=== PATIENT | male | born 1955 | race Caucasian/White ===

== ENCOUNTER 2018-05-23 14:25 | Inpatient (IN) | payer SELFPAY ==
[2018-05-23 15:11] LABS: Bilirubin Large (Negative); Blood, Urine Large (Negative); Clarity CLOUDY (Clear); Glucose, Urine (Dipstick) Negative (Negative); Leukocyte Moderate (Negative); Nitrite Positive (Negative); Protein, Urine (Dipstick) Trace mg/dL (Neg-Trace); Specific Gravity, Urine 1.018 (1.002-1.036)
[2018-05-23 15:18] LABS: Hemoglobin 11.1 g/dL (14.0-18.0); Mean Corpuscular HGB CONC 31.6 g/dL (32.0-36.0); Mean Corpuscular Hemoglobin 34.1 pg (27.0-31.0); Mean Platelet Volume 8.4 fL (7.4-10.4); Platelet Count 127 thou/uL (130-400); Red Blood Cell (RBC) Count 3.27 mill/uL (4.70-6.10)
[2018-05-23 15:18] LABS: Bacteria/HPF None Seen HPF (None Seen); Hyaline Casts/LPF 0-3 HYALINE CAST LPF (0-3 Hyaline); Pathc Cast-AUWi Flag 0.14 (0-2.49); Squamous Epithelial 0-3 HPF (0-3)
[2018-05-23 15:20] LABS: Yeast-AUWi Flag 109.7 (0-25.0)
[2018-05-23 15:22] LABS: Amphetamine Not Detected (NotDetected); Barbiturates Screen Not Detected (NotDetected); Benzodiazepine Screen Not Detected (NotDetected); Cocaine Metabolite Screen Not Detected (NotDetected); Medtox Control Line Valid? VALID (VALID); Medtox Reader # READER 1; Methadone Not Detected (NotDetected); Methamphetamine Not Detected (NotDetected); Opiate Screen Not Detected (NotDetected); Oxycodone Screen Not Detected (NotDetected); Phencyclidine (PCP) Not Detected (NotDetected); THC/Cannabinoid Screen Not Detected (NotDetected); Tricyclic Screen Not Detected (NotDetected)
[2018-05-23 15:25] LABS: Prothrombin Time 39.5 SEC (12.0-14.7)
[2018-05-23 15:29] LABS: INR-International Normal Ratio 4.1
[2018-05-23 15:32] LABS: Yeast-All Forms None Seen HPF (None Seen)
[2018-05-23 15:39] LABS: ALT (SGPT) 122 U/L (8-55); AST (SGOT) 376 U/L (5-34); Acetaminophen Less than 6.0 mcg/mL (10.0-30.0); Albumin 1.6 g/dL (3.5-5.0); Alcohol Less than 10 mg/dL (Less than 10); Alkaline Phosphatase 90 U/L (40-150); Anion Gap 16 mmol/L (10-20); Anisocytosis SLIGHT = 6-15 cells (100X) (0-5/hpf); BUN (Urea Nitrogen) 37 mg/dL (8.4-25.7); Band 30 % (5-11); Bilirubin, Total 7.1 mg/dL (0.2-1.2); CK (CPK) 1242 U/L (30-200); Calc. Creatinine Clearance 0 mL/min (70-130); Calcium 8.3 mg/dL (7.8-10.44); Carbon Dioxide 15 mmol/L (22-29); Chloride 112 mmol/L (98-107); Crenated RBC SLIGHT = 1-5 cells (100X) (None Seen); Estimated GFR-MDRD 38; Globulin 4.1 g/dL (2.4-3.5); Glucose 118 mg/dL (70-105); Lymphocytes 8 % (21-51); MDiff Complete? YES; Magnesium 1.4 mg/dL (1.6-2.6); Metamyelocyte 1 % (0-0); Monocytes 3 % (0-10); Neutrophil 58 % (42-75); Nucleated RBC 2 % (0); Platelet Morphology Comment Appears Decreased; Potassium 4.2 mmol/L (3.5-5.1); Protein, Total 5.7 g/dL (6.0-8.3); Salicylate Less than 8.0 mg/dL (15.0-30.0); Sodium 139 mmol/L (136-145)
[2018-05-23] MEDS ORDERED: Piperacillin/Tazobactam 4.5 GM VIAL ONE (15:46)
--- NOTE | 2018-05-23 16:07 | RAD ---
CHEST 1 VIEW: Date: 05/23/18 HISTORY: Altered mental status. COMPARISON: None. FINDINGS: Heart size is enlarged. Moderate pulmonary venous congestion. No pneumothorax. Pulmonary arteries are mildly engorged. No acute osseous abnormality. Old left-sided anterior rib fra ctures. IMPRESSION: Cardiomegaly and pulmonary venous congestion. POS: CET
--- NOTE | 2018-05-23 16:56 | CT ---
NONCONTRAST CT HEAD: Date: 05/23/18 HISTORY: Altered mental status. COMPARISON: None available. FINDINGS: There are a few scattered areas of diminished attenuation of the periventricular white matter which a re nonspecific but likely reflective of mild chronic small vessel ischemic changes. There is no evide nce of an acute cortical infarction, hemorrhage, mass effect, or midline shift. Mild cerebral volume loss is present. Ventricular system is normal in size, shape, and position for the degree of sulcal a trophy. There is minimal mucosal thickening in each maxillary antrum, as well as anterior ethmoidal air cells . Mastoid air cells are clear. No calvarial fracture is seen. Prominent vascular calcifications are s een in the carotid siphons bilaterally, and to a lesser degree in the distal vertebral arteries. IMPRESSION: No acute intracranial abnormality is demonstrated. POS: ADITI
[2018-05-23 19:22] LABS: Lactic Acid 7.5 mmol/L (0.5-2.2)
[2018-05-23] MEDS ORDERED: Ondansetron PF 4 MG/2 ML Vial IVP PRN (20:43)
[2018-05-23] MEDS ORDERED: Sodium Chloride 0.9% 1,000 ML IV SCH (20:43)
[2018-05-23] MEDS ORDERED: CCU Electrolyte Replacement 1 EACH FS SCH (20:43)
[2018-05-23 20:46] VITALS: BMI 28.0
[2018-05-23 20:51] VITALS: TEMP 90.9
[2018-05-23] MEDS ORDERED: Famotidine/PF 20 mg/2ml Vial SLOW IVP SCH (21:00)
[2018-05-23] MEDS ORDERED: Potassium Chloride 40 MEQ in Sodium Chloride 0.9% 250 ML 250 ML IVPB PRN (21:01)
[2018-05-23] MEDS ORDERED: Potassium Phosphate 15 MMOL in Sodium Chloride 0.9% 250 ML 250 ML IV PRN (21:01)
[2018-05-23] MEDS ORDERED: Potassium Phosphate 12 MMOL in Sodium Chloride 0.9% 250 ML 250 ML IV PRN (21:01)
[2018-05-23] MEDS ORDERED: Magnesium Oxide 400 MG TAB PO PRN ×2 (21:01)
[2018-05-23] MEDS ORDERED: Magnesium 2 GM/NS 0.9% 100 ML 2 GM in Premix Bag 1 BAG IVPB PRN (21:01)
[2018-05-23] MEDS ORDERED: Potassium Chloride 20 MEQ TAB PO PRN (21:01)
[2018-05-23] MEDS ORDERED: Potassium Phosphate 9 MMOL in Sodium Chloride 0.9% 100 ML IVPB PRN (21:01)
[2018-05-23] MEDS ORDERED: CCU ELECTROLYTE REPLACEMENT PROTOCOL FS PRN (21:01)
[2018-05-23] MEDS ORDERED: Potassium Chloride 40 MEQ in Premix Bag 1 BAG IVPB PRN (21:01)
[2018-05-23] MEDS ORDERED: Albumin 25% 25 GM/100 ML BOT IVPB SCH (23:59)
[2018-05-23] MEDS ORDERED: Piperacillin/Tazobactam 3.375 GM in Sodium Chloride 0.9% 100 ML IVPB SCH (23:59)
[2018-05-24 01:15] VITALS: BP 74/43
--- NOTE | 2018-05-24 11:32 | SS ---
DATE OF ADMISSION: 05/23/2018 DATE OF DISCHARGE: 05/23/2018 DATE OF : 05/23/2018, time of 23:50. CAUSE OF : 1. Asystole. 2. Respiratory arrest. 3. End-stage cirrhosis. CONSULTATIONS: None. PROCEDURES: None. HISTORY OF PRESENT ILLNESS: Mr. Srivastava was a 62-year-old gentleman with a history of past heavy alcohol drinking, who was found unresponsive by his sister, whom he lived with, on the day of admission. He had been confining himself to his bedroom a few days prior to that, but not had many complaints. When he did respond, she went into his bedroom and found him on the floor unresponsive. EMS was activated. On the EMS arrival, his core temperature was 84.2, and blood sugar was noted initially to be 10, but improved with D50. He was subsequently brought to the emergency department for evaluation. He remained hypothermic, but placed on a warming blanket. Labs revealed elevated LFTs, low magnesium, and other findings consistent with chronic cirrhosis. We were subsequently called for admit. The patient was unable to give any further history. Sister was at the bedside and had no other history on him. She is medical power of energy attorney and noted that his wishes were to be DNR/DNI. PAST MEDICAL HISTORY: 1. Alcohol abuse. 2. Probable end-stage cirrhosis. PAST SURGICAL HISTORY: None. HOME MEDICATIONS: None. ALLERGIES: NKDA. FAMILY HISTORY: Negative for clotting or bleeding disorder, No immune dysfunction. SOCIAL HISTORY: Significant for significant alcohol use, unknown amounts. He smokes cigars daily. REVIEW OF SYSTEMS: Unobtainable due to the patient being obtunded. PHYSICAL EXAMINATION: VITAL SIGNS: Temperature 87.6, pulse 67, blood pressure 86/59, respiratory rate 24, saturating 94% on 3 L nasal cannula. GENERAL: He is somewhat comatose and minimally responsive except for agonal groaning. He is unable to follow any instructions. HEENT: Normocephalic and atraumatic, scleral icterus present. Pupils equal, round, and reactive to light bilaterally. Mucous membranes are moist. No visible lesions or thrush. NECK: Supple. There is no lymphadenopathy. Did have JVD with the increased hepatojugular reflex. LUNGS: Have diminished breath sounds in the bases with bilateral crackles. ABDOMEN: Protuberant and with positive fluid wave. CARDIOVASCULAR: Regular and normal cardiac. I do not appreciate murmurs. EXTREMITIES: Showed 1+ bilateral lower extremity edema. SKIN: Warm, moist, well perfused, but did show jaundice. NEUROLOGIC: Not testable. MUSCULOSKELETAL: Unremarkable for large joint pathology. LABORATORY DATA: Sodium 139, potassium 4.2, chloride 112, bicarb 15, BUN 37, creatinine 1.81 with unknown baseline, glucose 118, and magnesium 1.4. Liver function showed alkaline phosphatase of 90, AST 376, ALT 122, total bilirubin 7.1 with an albumin 1.6. CBC showed a white count of 3.0. He had 54% granulocytes with 36% bands. Hemoglobin is 12.1, hematocrit 35.2, platelet count 127,000. BNP was 805. Lactic acid 6.2, INR 4.1. Total CK was 1242 and troponin I was undetectable. RADIOGRAPHIC STUDIES: None. HOSPITAL COURSE: The patient was seen and examined by me in the emergency department, admitted to the intermediate care unit. The patient made DNR/DNI. He was continued on broad-spectrum antibiotics for possible SBP as he did groan when abdomen was palpated. The patient developed agonal respirations and heart rate decreased to the 40s around 23:36. They were unable to get good blood pressure reading, and oxygen saturation decreased down in the 60s. They were unable to get hold of the sister. The patient was continued to be monitored and at 23:50 went into asystole. He pronounced at 23:50. DISPOSITION: Body transferred to the [facility] [place] family being contacted. Job ID: [id number]
--- NOTE | 2018-05-24 15:53 | EKG ---
Test Reason : Blood Pressure : / mmHG Vent. Rate : 062 BPM Atrial Rate : 062 BPM P-R Int : 150 ms QRS Dur : 072 ms QT Int : 488 ms P-R-T Axes : 068 043 -72 degrees QTc Int : 495 ms Normal sinus rhythm Possible Left atrial enlargement Nonspecific ST and T wave abnormality Prolonged QT Abnormal ECG Confirmed by KANG LARKIN ([id number]), mapping editor JUAN VÁZQUEZ ([id number]) on 05/24/2018 3:53:19 PM Referred By: Confirmed By:KANG LARKIN
--- NOTE | 2018-06-16 11:50 | PQF ---
SAP Stitch Bonding Machine Tender Helper Crystal Reports Winform ViewerASHOKMARY BETH MCKEON ERIC [id number] [facility]- B08 [id number] CLINICAL DOCUMENTATION CLARIFICATION FORM: POST DISCHARGE Addendum to original discharge summary date: ____ Late entry note date: __ Please exercise your independent, professional judgment in responding to the clarification form. Clinical indicators are provided on the bottom of this form for your review Please check appropriate box(s): [ ] Hypovolemic Shock [ ] Cardiogenic Shock [ ] Septic Shock [ ] Hemorrhagic Shock due to trauma: [ ] Hemorrhagic Shock due to surgery: [ ] Anaphylactic Shock (please specify etiology) [ ] Neurogenic Shock [ ] Zvlru-Ozel-uxetdeh Shock (please specify etiology) [ ] Shock Unspecified [ ] Other diagnosis [ ] Unable to determine In addition, please specify: Present on Admission (POA): [ ] Yes [ ] No [ ] Unable to determine For continuity of documentation, please document condition throughout progress notes and discharge summary. Thank You. CLINICAL INDICATORS - SIGNS / SYMPTOMS / LABS LACTIC ACIDOSIS- ED BP 825*; 86/53; 88/55; 86/54; 88/50- ED LACTIC ACID 6.2/7.5 - ED RECTAL TEMP 84.5; O2 SAT 91%, ON RA- PLACED ON 3L NC- 95% O2 SAT; RR 12-25- ED SKIN DUSKY, JAUNDICED WITH PERIPHERAL CYANOSIS; SWELLING TO EYELIDS AND PENIS; BLE 2+ PITTING EDEMA- ED RISK FACTORS CARDIAC ARREST- SHORT STAY SUMMARY, PROGRESS NOTE SAP Stitch Bonding Machine Tender Helper Crystal Reports Winform ViewerTREATMENTS: ADMITTED TO [facility]- SHORT STAY SUMMARY FLUIDS AND ANTIBIOTICS GIVEN, ZOSYN- ED (This form is maintained as a part of the permanent medical record) 2014 [employer] All Rights Reserved [email or web address] [phone] CARMINA
--- NOTE | 2018-06-16 11:53 | PQF ---
SAP Overhead Irrigator Crystal Reports Winform RosarioMIKE, ERIN GIMENEZ [id number] [facility]- B08 [id number] CLINICAL DOCUMENTATION CLARIFICATION FORM: POST DISCHARGE Addendum to original discharge summary date: ____ Late entry note date: __ Please exercise your independent, professional judgment in responding to the clarification form. Clinical indicators are provided on the bottom of this form for your review Please check appropriate box(s): [ ] RHABDOMYLOSIS [ ] Other diagnosis [ ] Unable to determine In addition, please specify: Present on Admission (POA): [ ] Yes [ ] No [ ] Unable to determine For continuity of documentation, please document condition throughout progress notes and discharge summary. Thank You. CLINICAL INDICATORS - SIGNS / SYMPTOMS / LABS CREATINE KINASE ON 05/23= 1242- ED RISK FACTORS ALCOHOL DEPENDENCE- ED, SHORT STAY SUMMARY ALCOHOLIC CIRRHOSIS- SHORT STAY SUMMARY TREATMENTS: IV FLUIDS- ED (This form is maintained as a part of the permanent medical record) 2014 [employer]. All Rights Reserved [email or web address] [phone] MTDD
--- NOTE | 2018-06-16 11:59 | PQF ---
SAP Human Services Case Manager Crystal Reports Winform LuisTHE MEDICAL CENTERMIKE, ERIN GIMENEZ [id number] [facility]- B08 [id number] CLINICAL DOCUMENTATION CLARIFICATION FORM: POST DISCHARGE Addendum to original discharge summary date: ____ Late entry note date: __ Please exercise your independent, professional judgment in responding to the clarification form. Clinical indicators are provided on the bottom of this form for your review Please check appropriate box(s): [ ] Associated Diagnosis: [ ] GEE [ ] Other diagnosis [ ] Unable to determine In addition, please specify: Present on Admission (POA): [ ] Yes [ ] No [ ] Unable to determine For continuity of documentation, please document condition throughout progress notes and discharge summary. Thank You. CLINICAL INDICATORS - SIGNS / SYMPTOMS/ LABS are present in the medical record: LABS 05/23 BUN 37; GFR 38- NURSING NOTE, ED BROWN URINE DRAINING- NURSING NOTE 05/23 @ 1951 RISK FACTORS PROBABLE END STAGE CIRRHOSIS- SHORT STAY SUMMARY HEAVY ALCOHOL DRINKING- ED SOMEWHAT COMATOSE- ED TREATMENT IV FLUIDS GIVEN- ED (This form is maintained as a part of the permanent medical record) 2014 [employer]. All Rights Reserved [email or web address]
--- NOTE | 2018-06-16 12:04 | PQF ---
SAP Is Project Manager Crystal Reports Winform [facility], ERIN GIMENEZ [id number] [facility]- B08 [id number] CLINICAL DOCUMENTATION CLARIFICATION FORM: POST DISCHARGE Addendum to original discharge summary date: ____ Late entry note date: __ Please exercise your independent, professional judgment in responding to the clarification form. Clinical indicators are provided on the bottom of this form for your review Please check appropriate box(es): [ ] Sepsis due to: (Pna, UTI, gangrenous gall bladder, etc.) Due to: [ ] Device (please specify) [ ] Implant [ ] Graft [ ] Infusion [ ] SIRS due to non-infectious process (please specify etiology) [ ] with organ dysfunction [ ] without organ dysfunction [ ] Severe sepsis with acute organ dysfunction of: (Examples: respiratory failure, encephalopathy, acute kidney failure, other) [ ] Septic Shock [ ] Localized infection without sepsis [ ] Other diagnosis [ ] Unable to determine In addition, please specify: Present on Admission (POA): [ ] Yes [ ] No [ ] Unable to determine For continuity of documentation, please document condition throughout progress notes and discharge summary. Thank You. CLINICAL INDICATORS - SIGNS / SYMPTOMS / LABS SEPSIS W/ SEPSIS ALERT ACTIVATED- ED HYPOTHERMIA- ED CARDIAC ARREST- SHORT STAY SUMMARY, PROGRESS NOTE METABOLIC ACIDOSIS- ED WBC COUNT 3.0; BANDS = 30- ED RISK FACTORS HEPATIC FAILURE- ED, SHORT STAY SUMMARY TREATMENTS: IV ATIBIOTICS, ZOSYN- ED IV FLUIDS- ED SAP Is Project Manager Crystal Reports Winform Viewer (This form is maintained as a part of the permanent medical record) 2014 [employer]. All Rights Reserved [email or web address] [phone] MTDPhuong
--- NOTE | 2018-06-16 12:08 | PQF ---
SAP Coating And Baking Operator Crystal Reports Winform ViewerASHOKMARY BETH MCKEON ERIC [id number] [facility] B08 [id number] CLINICAL DOCUMENTATION CLARIFICATION FORM: POST DISCHARGE Addendum to original discharge summary date: ____ Late entry note date: __ Please exercise your independent, professional judgment in responding to the clarification form. Clinical indicators are provided on the bottom of this form for your review Please check appropriate box(s): [ ] Encephalopathy: Type: [ ] Acute [ ] Subacute [ ] Chronic Etiology: [ ] Hypertensive [ ] Metabolic [ ] Toxic [ ] Hepatic with Coma [ ] Hepatic w/o Coma [ ] Hypoxic [ ] Septic [ ] Drug induced: [ ] Unspecified [ ] in the setting of underlying dementia [ ] Other (please specify) [ ] Transient Alteration of Awareness [ ] Other diagnosis [ ] Unable to determine In addition, please specify: Present on Admission (POA): [ ] Yes [ ] No [ ] Unable to determine For continuity of documentation, please document condition throughout progress notes and discharge summary. Thank You. CLINICAL INDICATORS - SIGNS / SYMPTOMS / LABS AMS/ HISTORY OF LIVER FAILURE; NOT SPEAKING, ONLY MAKING GRUNTING NOISES- ED GCS 12, OCCASIONALLY COMBATITIVE- ED RISK FACTORS ALCOHOL DEPENDENCE- ED, SHORT STAY SUMMARY ALCOHOLIC CIRRHOSIS- ED TREATMENTS: OXYGEN THERAPY- 2L NC THEN 150ML/HR- ED IV ANTIBIOTICS, ZOSYN- ED IV FLUIDS- ED SAP Coating And Baking Operator Crystal Reports Winform Viewer (This form is maintained as a part of the permanent medical record) 2014 [employer]. All Rights Reserved [email or web address] [phone] MTDD
== END 2018-05-23 23:50 | disposition expired | DRG 442 ==
LOC: EDBD 14:25 → ERS 14:25 → IMCU/EMU 17:48
PROVIDERS: ADMIT Internal Medicine Infectious Disease; ATTEND Internal Medicine Infectious Disease
DX: K72.91 Hepatic failure, unspecified with coma (principal); E87.2 Acidosis; I46.9 Cardiac arrest, cause unspecified; Z66 Do not resuscitate; F10.20 Alcohol dependence, uncomplicated; T68.XXXA Hypothermia, initial encounter; K70.30 Alcoholic cirrhosis of liver without ascites; F17.290 Nicotine dependence, other tobacco product, uncomplicated
CPT/HCPCS: 36415; 36416; 51702; 70450; 71045; 80053; 80306; 80307; 81003; 81015; 82140; 82550; 83605; 83735; 83880; 84484; 85025; 85610; 85730; 87040; 87077; 93005; 96361; 96365; 96367; J2543; J3370; J7050; P9047; S0028